=== PATIENT | male | born 1960 | race Caucasian/White ===

== ENCOUNTER → 2016-07-06 | Outpatient (CLI) | payer BC ==
--- NOTE | 2016-07-06 14:56 | KCIC ---
PROCEDURE Lumbar spine series. HISTORY Chronic low back pain extending into both legs, feet, and ankles. No known injury. TECHNIQUE Lumbosacral spine series with oblique views contains 5 images. COMPARISON April 16, 2014. FINDINGS There is no fracture or dislocation. Vertebral body height is maintained. Endplate spurring is noted throughout, more notable anteriorly. Facet hypertrophy is noted at L4-L5 and L5-S1. Overall, findings appear similar to prior examination. There is atheromatous disease in the abdominal aorta. There are clips in the gallbladder fossa. IMPRESSION Mild degenerative changes in the lumbar spine, relatively stable compared to 2013. Electronically signed by: Mirza Goodman MD (Jul 06, 2016 14:55:28)
--- NOTE | 2016-07-06 14:59 | KCIC ---
PROCEDURE Two view chest radiograph. HISTORY Cough for 1 week. Pneumonia in May. TECHNIQUE Two-view chest radiograph was obtained. COMPARISON April 16, 2014. FINDINGS The lungs are clear. There is no pleural effusion. The heart is not enlarged. There is no heart failure. There are minimal degenerative changes in the spine. IMPRESSION No acute thoracic findings. Electronically signed by: Mirza Goodman MD (Jul 06, 2016 14:57:50)
== END | disposition home or self-care (01) ==
LOC: KCIC 11:10
PROVIDERS: ATTEND Family Medicine
DX: M54.5 Low back pain (principal); R05 Cough
CPT/HCPCS: 71020; 72110